=== PATIENT | female | born 1970 | race Caucasian/White ===

== ENCOUNTER 2019-08-31 07:50 | Day surgery (SDC) | payer BC ==
[~2019-08-31] VITALS: Ht 170.2 cm; Wt 100.7 kg
[~2019-08-31 07:50] MED LIST: AMIT25TA PO; AZTREONAM IV Push 1 GM VIAL. IVP ONE; BUPR150T15 PO; CLINDAMYCIN 900MG PREMIX 50 ML IV ONE; DIAZ2TAB PO; GABA300C18 PO; HYDR-2769 PO; HYDR-3135 PO; HYDROmorphone 2 MG/ML VIAL IV PRN; IV RINGERS,LACTATED 1000ML 1,000 ML IV SCH; LIDO700A4 TP; LIDOCAINE 1% PF 2 ML VIAL. ID PRN; METO-239 PO; MORPHINE SULFATE 2 MG/ML VIAL. IV PRN; OMEP40CA2 PO; ONDANSETRON PF 4 MG/2 ML VIAL. IV PRN; OXYM30TA PO; PANT40TA77 PO; PROCHLORPERAZINE 10 MG/2 ML VIAL. IV PRN; TIZA4TAB8 PO; fentaNYL PF VIAL 100 MCG/2 ML VIAL IV PRN
[2019-08-31] MEDS ORDERED: DEXAMETHASONE SOD PHOS 4 MG/ML VIAL ONE (08:45)
[2019-08-31] MEDS ORDERED: MIDAZOLAM HCL/PF 2 MG/2 ML VIAL. ONE (08:45)
[2019-08-31] MEDS ORDERED: LIDOCAINE 2% PF 5 ML VIAL. ONE (08:45)
[2019-08-31] MEDS ORDERED: ONDANSETRON PF 4 MG/2 ML VIAL. ONE (08:45)
[2019-08-31] MEDS ORDERED: PROPOFOL 20 ML IV ONE ×4 (08:45→09:58)
[2019-08-31] MEDS ORDERED: KETOROLAC 30 MG/ML VIAL. ONE (08:52)
[2019-08-31] MEDS ORDERED: SCOPOLAMINE 1.5MG PATCH. TD ONE (09:00)
--- NOTE | 2019-08-31 10:19 | PDOC ---
BRIEF OPERATIVE NOTE Date: Aug 31, 2019 Pre-Op Diagnosis Menorrhagia Post-Op Diagnosis Same Procedure Performed Endometrial Ablation Surgeon Dr. Morton Anesthesia Type: General Blood Loss 25 ml Specimens Obtained none Findings enlarged uterus Complications none Operative Note see dictation RAJ MORTON Jr, MD Aug 31, 2019 10:19
--- NOTE | 2019-08-31 10:21 | DISCH ---
DISCHARGE INSTRUCTIONS Condition on Discharge Condition on Discharge: Stable Activity After Discharge Activity Instructions for Disc: Activity as tolerated Lifting Instructions after Dis: No heavy lifting Driving Instructions after Dis: Do not drive today Diet after Discharge Diet after Discharge: Regular Contacting the after DC Call your doctor for: Concerns you may have Follow-Up Follow up with: Dr. Morton in 2 wks RAJ MORTON Jr, MD Aug 31, 2019 10:20
--- NOTE | 2019-08-31 10:38 | OP ---
DATE OF SURGERY: PREOPERATIVE DIAGNOSIS: Menorrhagia. POSTOPERATIVE DIAGNOSES: Menorrhagia. PROCEDURE: Endometrial ablation via NovaSure device. SURGEON: Richard Morton MD ANESTHESIA: GETA. ESTIMATED BLOOD LOSS: 25 mL. COMPLICATIONS: None. FINDINGS: Enlarged uterus. SUMMARY: A 48-year-old with menorrhagia, unresponsive to any medical treatment. The patient was counseled on risks, benefits and expectations of endometrial ablation and desired to proceed. DESCRIPTION OF PROCEDURE: The patient was taken to surgery suite and placed in dorsal lithotomy position. She was prepped with Betadine solution and draped in sterile fashion. After adequate anesthesia, weighted speculum and curved [place] placed. Anterior lip of the cervix was grasped with single tooth tenaculum. Uterus was sounded to 11 cm in length. The Hegar dilators were utilized to dilate the cervix up to 7 mm. The NovaSure device was then placed using a setting of 6.5 plus on the left and 3 cm on width. The NovaSure device was then completed its cycle within a 90-second time frame. The NovaSure device was then removed. Single tooth tenaculum and weighted speculum were also removed. The patient tolerated the procedure well and was taken to recovery room in stable condition. Sponge count correct x 3. RICHARD MORTON MD DR: ELVIN/yvonne JOB#: [id number] / [id number]
[2019-08-31] MEDS ORDERED: OXYC1TAB15 PO (10:46)
[2019-08-31] MEDS ORDERED: oxyCODONE/APAP 5/325 1 TAB TABLET PO ONE (11:00)
[2019-08-31 11:30] VITALS: BP 114/74
== END 2019-08-31 11:52 | disposition home or self-care (01) ==
LOC: SURG 07:50
PROVIDERS: ATTEND Obstetrics & Gynecology
DX: N92.0 Excessive and frequent menstruation with regular cycle (principal); N85.2 Hypertrophy of uterus; I10 Essential (primary) hypertension; J45.909 Unspecified asthma, uncomplicated; K21.9 Gastro-esophageal reflux disease without esophagitis; G43.909 Migraine, unspecified, not intractable, without status migrainosus; E66.9 Obesity, unspecified; Z68.34 Body mass index [BMI] 34.0-34.9, adult; Z90.49 Acquired absence of other specified parts of digestive tract; Z87.891 Personal history of nicotine dependence; Z86.010 Personal history of colon polyps; Z98.51 Tubal ligation status
CPT/HCPCS: 58353; 81025; A7015; J0780; J1100; J1885; J2001; J2250; J2405; J2704; J3490; J7030